=== PATIENT | female | born 1990 | race Native Hawaiian/Other Pacific Islander ===

== ENCOUNTER → 2021-04-06 | Outpatient (CLI) | payer BC ==
--- NOTE | 2021-04-06 15:32 | Diagnostic Imaging Report ---
INDICATION: Pelvic pain, positive study. FINDINGS: There is no identifiable intra- or extra-uterine gestational sac. There is no fibroid lesion. The endometrium appeared grossly unremarkable. The right ovary is enlarged, 6.8 x 6.1 x 3.7 cm, and contains some subcentimeter peripheral follicles as well as a central somewhat irregular hypoechoic non-vascularized structure measuring 2.9 x 1.7 cm, likely an involuting follicle. There is ogsta-ck-[id number] amount of pelvic free fluid, which showed no convincing complexity. There is color Doppler blood flow to the adnexa bilaterally and no findings of torsion. No extrauterine gestation can be visualized. IMPRESSION: 1. No identifiable intra- or extra-uterine gestation. Serial beta-hCG and short-term follow-up recommended. This patient does have soqru-pw-kekykozm volume of pelvic free fluid, but this fluid showed no obvious complexity and did not extend into the abdomen. 2. Right ovarian enlargement without adnexal torsion with a central 2.9 cm complex cyst. Dictated by: Dictated on workstation # [id number]
== END ==
LOC: RAD 14:30
PROVIDERS: ATTEND Nurse Practitioner
DX: Z32.01 Encounter for pregnancy test, result positive (principal); N83.201 Unspecified ovarian cyst, right side
CPT/HCPCS: 36415; 76817; 84702; 86850; 86900; 86901

== ENCOUNTER 2023-05-19 10:09 | Inpatient (IN) | payer BC ==
[~2023-05-19] VITALS: Ht 155 cm; Wt 79.6 kg
[2023-05-19] VITALS (32 sets, daily range): BP systolic 98–132; BP diastolic 50–80
[2023-05-19] MEDS ORDERED: D5 LR 1,000 ML IV SOLN 1,000 ML IV ONE (10:51)
[2023-05-19] MEDS ORDERED: OXYTOCIN DRIP PRE-MIX 500 ML IV SCH ×2 (11:00→18:30)
[2023-05-19] MEDS ORDERED: LIDOCAINE 1% INJ 20 ML VIAL IJ PRN (11:00)
[2023-05-19] MEDS ORDERED: LACTATED RINGERS 1,000 ML 500 ML IV PRN (11:00)
[2023-05-19 11:06] LABS: BASOPHILS % (AUTO) 0 % (0-10); EOSINOPHILS # (AUTO) 0.2 10^3/uL (0.0-0.3); EOSINOPHILS % (AUTO) 3 % (0-10); HEMATOCRIT 33 % (35-52); HEMOGLOBIN 11.1 g/dL (11.5-16.0); LYMPHOCYTES # (AUTO) 2.1 10^3/uL (1.0-4.0); LYMPHOCYTES % (AUTO) 24 % (12-44); MEAN CORPUSCULAR HEMOGLOBIN 31 pg (25-34); MEAN CORPUSCULAR HGB CONC 33 g/dL (32-36); MEAN CORPUSCULAR VOLUME 94 fL (80-99); MEAN PLATELET VOLUME 9.6 fL (9.0-12.2); MONOCYTES # (AUTO) 0.6 10^3/uL (0.0-1.0); MONOCYTES % (AUTO) 7 % (0-12); NEUTROPHILS # (AUTO) 5.5 10^3/uL (1.8-7.8); NEUTROPHILS % (AUTO) 64 % (42-75); PLATELET COUNT 194 10^3/uL (130-400); WHITE BLOOD COUNT 8.6 10^3/uL (4.3-11.0)
[2023-05-19] MEDS ORDERED: D5 LR 1,000 ML IV SOLN 1,000 ML IV SCH (11:15)
[2023-05-19] MEDS ORDERED: MINERAL OIL 30 ML UDC TOP PRN (11:15)
--- NOTE | 2023-05-19 11:25 | History & Physical-OB ---
OB - Chief Complaint & HPI Date/Time Date of Admission: Date of Admission: May 19, 2023 at 10:09 Date seen by a Provider: May 19, 2023 Time Seen by a Provider: 10:20 Chief Complaint/History OB-Reason for Admission/Chief: Induction of Labor Hx : 5 Hx Para: 3 Gestational Age in Weeks: 38 Gestational Age in Days: 3 Indication for induction: history of rapid labor (Advanced dilation) History of Labs O+, Ab neg, Rub Imm HIV/RPR/HepB/C NR Abnormal 1 hr GTT Abnormal 3hr GTT GBS neg Allergies and Home Medications Allergies Coded Allergies: No Known Drug Allergies (Unverified , 05/19/23) Patient Home Medication List Home Medication List Reviewed: Yes OB - History Hx of Present Care: Yes Ultrasounds: Normal mid trimester US Obstetrical Complications: Gestational Diabetes (diet controlled) Obstetrical History Hx : 5 Hx Para: 3 Hx # Term Pregnancies: 3 Number of Living Children: 3 Patient Past Medical History None Social History/Family History Alcohol Use: Denies Use Recreational Drug Use: No Smoking Cessation: Never smoker Immunizations Influenza Vaccine Up-to-Date: Yes; Up-to-Date COVID19 Vaccine Income Tax Auditor: Moderna Hepatitis A: No Hepatitis B: No Tetanus Booster (TDap): Less than 5yrs Rubella: immune RPR/VDRL: Negative GBS Status: Negative HBsAG: Negative OB - Admission Exam Physical Exam HEENT: NCAT Heart: Rhythm Normal Lungs: Clear Abdomen: Gravid Cervical Dilatation: 7cm Effacement: 75% Station: -1 Membranes: Intact Heart Rate: 140's Accelerations: Accelerations Present Decelerations: No Decelerations Contractions on Admission: >10 Minutes Apart Intensity: Mild Montero Scoring Tool (Modified) Dilation (cm): >5cm (3) Effacement (%): 51-79% (2) Descent/Station: -1,0 (2) Cervix Consistency: Medium(1) Cervix Position: Middle/Mid-Position (1) Add 1 point for: Each previous vaginal delivery (1) Labs Laboratory Tests Test 05/19/23 10:26 Range/Units White Blood Count 8.6 4.3-11.0 10^3/uL Red Blood Count 3.53 L 3.80-5.11 10^6/uL Hemoglobin 11.1 L 11.5-16.0 g/dL Hematocrit 33 L 35-52 % Mean Corpuscular Volume 94 80-99 fL Mean Corpuscular Hemoglobin 31 25-34 pg Mean Corpuscular Hemoglobin Concent 33 32-36 g/dL Red Cell Distribution Width 13.1 10.0-14.5 % Platelet Count 194 130-400 10^3/uL Mean Platelet Volume 9.6 9.0-12.2 fL Immature Granulocyte % (Auto) 1 % Neutrophils (%) (Auto) 64 42-75 % Lymphocytes (%) (Auto) 24 12-44 % Monocytes (%) (Auto) 7 0-12 % Eosinophils (%) (Auto) 3 0-10 % Basophils (%) (Auto) 0 0-10 % Neutrophils # (Auto) 5.5 1.8-7.8 10^3/uL Lymphocytes # (Auto) 2.1 1.0-4.0 10^3/uL Monocytes # (Auto) 0.6 0.0-1.0 10^3/uL Eosinophils # (Auto) 0.2 0.0-0.3 10^3/uL Basophils # (Auto) 0.0 0.0-0.1 10^3/uL Immature Granulocyte # (Auto) 0.1 0.0-0.1 10^3/uL OB - Assessment/Plan/Diagnosis Assessment Assessment: induction of labor Admission Dx Third Trimester 38 week gestation Advanced Dilation GDM Admission Status: Inpatient Order (span 2 midnights) Reason for Inpatient Admission: Labor and post care Plan Other Plan 32 yo @ 38.3 wga here for IOL for advanced dilation and GDM Plan - Patient is blotable, will start pitocin protocol and wait to AROM until baby is engaged - GBS neg JASMYNE GAMBOA MD May 19, 2023 11:25
--- NOTE | 2023-05-19 17:12 | Labor Progress Note ---
Labor Progress Note Labor Progress Note Date Seen by Provider: May 19, 2023 Time Seen by Provider: 13:00 Subjective: Pt denies complaints. She is feeling the ctxs more. Objective: / Intact and blotable Assessment/Plan: Roderick Garcia is a (32 /Para 5 / 3,Gestational Age (wks)38.3 here for Medical IOL. CEFM/TOCO Continue pitocin induction protocol Anesthesia: none Anticipate vaginal delivery. Vitals - Labs Vital Signs - I&O Vital Signs Date Time Temp Pulse Resp B/P (MAP) Pulse Ox O2 Delivery O2 Flow Rate FiO2 05/19/23 16:28 57 18 116/63 (80) Room Air 05/19/23 16:10 62 18 120/63 (82) Room Air 05/19/23 15:55 56 18 104/62 (76) Room Air 05/19/23 15:40 62 18 115/70 (85) Room Air 05/19/23 15:30 62 18 110/63 (79) Room Air 05/19/23 15:15 71 18 119/68 (85) Room Air 05/19/23 15:00 36.2 56 18 113/67 (82) Room Air 05/19/23 14:42 58 18 114/69 (84) Room Air 05/19/23 14:25 62 18 114/55 (74) Room Air 05/19/23 13:55 68 18 109/65 (80) Room Air 05/19/23 13:52 66 18 115/68 (84) Room Air 05/19/23 13:25 57 18 107/69 (82) Room Air 05/19/23 13:13 70 18 106/54 (71) Room Air 05/19/23 12:55 59 18 110/66 (81) Room Air 05/19/23 12:40 60 18 109/62 (78) Room Air 05/19/23 12:25 60 18 104/64 (77) Room Air 05/19/23 12:10 62 18 122/68 (86) Room Air 05/19/23 11:56 57 18 111/66 (81) Room Air 05/19/23 11:23 36.6 67 18 98 Room Air Labs Laboratory Tests 05/19/23 10:26: White Blood Count 8.6, Red Blood Count 3.53L, Hemoglobin 11.1L, Hematocrit 33L, Mean Corpuscular Volume 94, Mean Corpuscular Hemoglobin 31, Mean Corpuscular Hemoglobin Concent 33, Red Cell Distribution Width 13.1, Platelet Count 194, Mean Platelet Volume 9.6, Immature Granulocyte % (Auto) 1, Neutrophils (%) (Auto) 64, Lymphocytes (%) (Auto) 24, Monocytes (%) (Auto) 7, Eosinophils (%) (Auto) 3, Basophils (%) (Auto) 0, Neutrophils # (Auto) 5.5, Lymphocytes # (Auto) 2.1, Monocytes # (Auto) 0.6, Eosinophils # (Auto) 0.2, Basophils # (Auto) 0.0, Immature Granulocyte # (Auto) 0.1, Glucose Level 79, Syphilis Total Antibody Negative JASMYNE GAMBOA MD May 19, 2023 17:12
[2023-05-19] MEDS ORDERED: LIDOCAINE 1% INJ 10 ML VIAL ONE (17:44)
--- NOTE | 2023-05-19 18:29 | OB Labor & Delivery Record ---
Vag Delivery Note Vag Delivery Note Date of Delivery: 05/19/23 Preoperative Diagnosis: Roderick Garcia is a (32 /Para 5 / 3,Gestational Age (wks)38.3 here for medical IOL for advanced dilation and uncontrolled GDM Postoperative Diagnosis: Same Surgeon: JASMYNE GAMBOA MD Bridge Engineer: London Turner MS4 Anesthesia: Natural Delivery Type: @1808 Findings: Viable Male , apgars 9/9, weight 7#0, 3170 grams Lacerations: None Intact placenta with 3 vessel cord. No nuchal cord, body cord or shoulder dystocia Estimated Blood Loss: 100 ml Complications: None Condition: Stable Description of Procedure: The patient is a 32 year old female who presented for medical IOL. She was admitted and informed consent was obtained. Her labor course was remarkable for pitocin induction. She progressed to complete dilatation and began to push. She was then set up for delivery. The infant's head was delivered atraumatically in the JUDY position. The shoulders and remainder of the 's body were then delivered without difficulty. Upon delivery, the infant was vigorous and placed on maternal chest and the mouth and nares were bulb suctioned. After a 2 min delay cord was doubly clamped and cut by FOB and the remained on maternal chest and attended to by nursery staff. An intact placenta with 3-vessel cord delivered via Aleshia and there was found to be minimal bleeding.~ Vigorous fundal massage was performed and the fundus was found to be firm. IV oxytocin was given. Examination of the vagina and perineum revealed no lacerations that required repair. Following the repair, sponge, instrument and needle counts were correct. Mom and baby were both in stable condition in the labor suite. Vitals - Labs Vital Signs - I&O Vital Signs Date Time Temp Pulse Resp B/P (MAP) Pulse Ox O2 Delivery O2 Flow Rate FiO2 05/19/23 16:30 57 18 116/63 (80) Room Air 05/19/23 16:28 57 18 116/63 (80) Room Air 05/19/23 16:10 62 18 120/63 (82) Room Air 05/19/23 15:55 56 18 104/62 (76) Room Air 05/19/23 15:40 62 18 115/70 (85) Room Air 05/19/23 15:30 62 18 110/63 (79) Room Air 05/19/23 15:15 71 18 119/68 (85) Room Air 05/19/23 15:00 36.2 56 18 113/67 (82) Room Air 05/19/23 14:42 58 18 114/69 (84) Room Air 05/19/23 14:25 62 18 114/55 (74) Room Air 05/19/23 13:55 68 18 109/65 (80) Room Air 05/19/23 13:52 66 18 115/68 (84) Room Air 05/19/23 13:25 57 18 107/69 (82) Room Air 05/19/23 13:13 70 18 106/54 (71) Room Air 05/19/23 12:55 59 18 110/66 (81) Room Air 05/19/23 12:40 60 18 109/62 (78) Room Air 05/19/23 12:25 60 18 104/64 (77) Room Air 05/19/23 12:10 62 18 122/68 (86) Room Air 05/19/23 11:56 57 18 111/66 (81) Room Air 05/19/23 11:23 36.6 67 18 98 Room Air Labs Laboratory Tests 05/19/23 10:26: White Blood Count 8.6, Red Blood Count 3.53L, Hemoglobin 11.1L, Hematocrit 33L, Mean Corpuscular Volume 94, Mean Corpuscular Hemoglobin 31, Mean Corpuscular Hemoglobin Concent 33, Red Cell Distribution Width 13.1, Platelet Count 194, Mean Platelet Volume 9.6, Immature Granulocyte % (Auto) 1, Neutrophils (%) (Auto) 64, Lymphocytes (%) (Auto) 24, Monocytes (%) (Auto) 7, Eosinophils (%) (Auto) 3, Basophils (%) (Auto) 0, Neutrophils # (Auto) 5.5, Lymphocytes # (Auto) 2.1, Monocytes # (Auto) 0.6, Eosinophils # (Auto) 0.2, Basophils # (Auto) 0.0, Immature Granulocyte # (Auto) 0.1, Glucose Level 79, Syphilis Total Antibody Negative JASMYNE GAMBOA MD May 19, 2023 18:28
[2023-05-19] MEDS ORDERED: BENZOCAINE/MENTHOL (DERMOPLAST) 56 ML CAN TP PRN (18:30)
[2023-05-19] MEDS ORDERED: WITCH HAZEL(TUCKS) 40 EA JAR TOP PRN (18:30)
[2023-05-19] MEDS: IBUPROFEN 600 MG TABLET PO SCH (19:39)
[2023-05-19] MEDS: ACETAMINOPHEN 500 MG TABLET PO SCH (19:39)
[2023-05-19] MEDS: DOCUSATE SODIUM 100 MG CAPSULE PO SCH (20:51)
[2023-05-19] MEDS ORDERED: CATHETER FLUSH 10 ML SYR IV SCH (22:00)
[2023-05-20 00:53] VITALS: BP 109/57
[2023-05-20] MEDS: ACETAMINOPHEN 500 MG TABLET PO SCH ×3 (00:53→15:20)
[2023-05-20] MEDS: IBUPROFEN 600 MG TABLET PO SCH ×3 (00:53→15:20)
[2023-05-20 05:00] VITALS: BP 102/55
[2023-05-20 06:11] LABS: BASOPHILS % (AUTO) 0 % (0-10); EOSINOPHILS # (AUTO) 0.2 10^3/uL (0.0-0.3); EOSINOPHILS % (AUTO) 2 % (0-10); HEMATOCRIT 30 % (35-52); LYMPHOCYTES # (AUTO) 2.4 10^3/uL (1.0-4.0); LYMPHOCYTES % (AUTO) 23 % (12-44); MEAN CORPUSCULAR HEMOGLOBIN 31 pg (25-34); MEAN CORPUSCULAR HGB CONC 34 g/dL (32-36); MEAN CORPUSCULAR VOLUME 93 fL (80-99); MEAN PLATELET VOLUME 9.6 fL (9.0-12.2); MONOCYTES # (AUTO) 0.8 10^3/uL (0.0-1.0); MONOCYTES % (AUTO) 7 % (0-12); NEUTROPHILS % (AUTO) 67 % (42-75); PLATELET COUNT 173 10^3/uL (130-400); WHITE BLOOD COUNT 10.4 10^3/uL (4.3-11.0)
[2023-05-20] MEDS ORDERED: PRENATAL VITAMIN TABLET PO SCH (07:00)
[2023-05-20 08:06] VITALS: BP 105/52
[2023-05-20] MEDS: DOCUSATE SODIUM 100 MG CAPSULE PO SCH (08:10)
[2023-05-20] MEDS ORDERED: FERROUS SULFATE 325 MG (IRON) TABLET PO SCH (09:00)
--- NOTE | 2023-05-20 09:51 | Discharge Summary ---
Diagnosis/Chief Complaint Date of Admission May 19, 2023 at 10:09 Date of Discharge 05/20/23 Admission Diagnosis Admission Diagnosis Third Trimester 38 weeks gestation GDM Discharge Diagnosis Asymptomatic Anemia Discharge Summary-Simple/Stand Procedures Discharge Physical Examination Allergies: Coded Allergies: No Known Drug Allergies (Unverified , 05/19/23) Vitals & I&Os Vital Sign - Last 12Hours Date Time Temp Pulse Resp B/P (MAP) Pulse Ox O2 Delivery O2 Flow Rate FiO2 05/20/23 08:06 36.8 63 18 105/52 (69) 98 Room Air Intake and Output 05/20/23 00:00 Intake Total 1000 ml Balance 1000 ml General Appearance: Alert, Oriented X3, No Acute Distress Respiratory: Clear to Auscultation, Normal Air Movement Cardiovascular: Regular Rate, No Murmurs Abdominal: Normal Bowel Sounds, Soft, No Tenderness, No Masses Extremities: No Edema, No Tenderness/Swelling Neuro: Normal Speech Hospital Course See final discharge diagnosis. Discussion & Recommendations 32 yo G5 now P4 delivered term male infant via . Discharge Condition at discharge stable Instructions to patient/family Please see electronic discharge instructions given to patient. Discharge Medications Reviewed and agree with Discharge Medication list on patient's Discharge Instruction sheet JASMYNE GAMBOA MD May 20, 2023 09:51
[2023-05-20] MEDS ORDERED: FERR325T24 PO (09:53)
[2023-05-20] MEDS ORDERED: IBUP-844 PO (09:53)
[2023-05-20] MEDS ORDERED: DOCU100C37 PO (09:53)
--- NOTE | 2023-05-20 09:54 | Discharge Summary ---
Discharge Inst-Women[facility] Depart Medications New, Converted or Re-Newed RX: Transmitted to Pharmacy New Medications: Docusate Sodium (Docusate Sodium) 100 Mg Capsule 100 MG PO BID, #14 CAP Ferrous Sulfate (Ferosul) 325 Mg (65 Mg Iron) Tablet 325 MG PO DAILY, #30 TAB Ibuprofen (Ibu) 600 Mg Tablet 600 MG PO Q6H, #30 TAB Follow Up/Instructions Goal/Follow Up: 6 week f.u with Desiree Activity Activity: Activity as Tolerated NO SMOKING: NO SMOKING Nothing Inside Vagina: No Douching, No [place], No Tampons Diet Discharge Diet: No Restrictions Symptoms to Report to DrChristiano: Bleeding Excessive, Fever Over 101 Degrees F Copies To 1: JASMYNE GAMBOA MD, HOLLY R MD May 20, 2023 09:54
[2023-05-20 12:26] VITALS: BP 115/61
[2023-05-20 15:20] VITALS: BP 120/70
== END 2023-05-20 20:05 | disposition home or self-care (01) | DRG 807 ==
LOC: LDRP 10:09
PROVIDERS: ADMIT Family Medicine; ATTEND Family Medicine
PROC: 10E0XZZ Delivery of Products of Conception, External Approach (ICD-10-PCS; principal; 2023-05-19)
PROC: 3E033VJ Introduction of Other Hormone into Peripheral Vein, Percutaneous Approach (ICD-10-PCS; 2023-05-19)
DX: O24.420 Gestational diabetes mellitus in childbirth, diet controlled (principal); Z37.0 Single live birth; Z3A.38 38 weeks gestation of pregnancy; O90.81 Anemia of the puerperium
CPT/HCPCS: 36415; 82947; 85025; 86780; 86850; 86900; 86901